=== PATIENT | male | born 1980 ===

== ENCOUNTER 2025-04-20 15:20 | Emergency (ER) | payer OTHER ==
[~2025-04-20] VITALS: Ht 175.3 cm; Wt 80.5 kg
[2025-04-20] MEDS: FentaNYL CITRATE PF 100 MCG/2 ML VIAL IVP ONE (16:26)
[2025-04-20] MEDS ORDERED: PROPOFOL 1% 20 ML VIAL IVP ONE (18:00)
[2025-04-20] MEDS: PROPOFOL 1% ISO-OSM 1000 MG/100 ML BOTTLE IVP ONE (18:25)
[2025-04-20 19:45] VITALS: O2SAT 100
[2025-04-20] MEDS: HYDROCODONE/ACETAMINOPHEN 5-325 MG TABLET PO ONE (20:06)
[2025-04-20 21:22] VITALS: BP 144/89; PULSE 88; RESP 16; TEMP 98.2; O2SAT 99
== END 2025-04-20 21:58 ==
LOC: EMS 15:23
DX: S43.005A Unspecified dislocation of left shoulder joint, initial encounter (principal); F17.210 Nicotine dependence, cigarettes, uncomplicated; R07.89 Other chest pain; X58.XXXA Exposure to other specified factors, initial encounter; Y93.89 Activity, other specified; Y92.89 Other specified places as the place of occurrence of the external cause; Y99.8 Other external cause status
CPT/HCPCS: 99285; 23650; 96374; 73030; 99152; 93005; J3010; J2704